=== PATIENT | female | born 1975 | race Caucasian/White ===

== ENCOUNTER → 2017-06-08 | Outpatient (CLI) | payer BC, SELFPAY | PROVIDERS: Family Provider Family Medicine; PCP Family Medicine; Visit Provider Family Medicine | DX: R10.32 Left lower quadrant pain (principal) | CPT/HCPCS: 76830 ==

== ENCOUNTER → 2017-06-13 11:06 | Outpatient (CLI) | payer BC, SELFPAY ==
[2017-06-13 11:53] LABS: Basophils % 0.8 % (0.1-2.0); Eosinophils # 0.2 K/mm3 (0.0-0.4); Eosinophils % 3.5 % (0.1-12.0); Hematocrit 33.2 % (37.0-47.0); Hemoglobin 10.1 g/dL (12.2-16.2); Lymphocytes # 1.9 K/mm3 (0.7-4.5); Lymphocytes % 42.3 K/mm3 (10-50); Mean Corpuscular HGB Conc 30.5 g/dL (31.8-35.4); Mean Corpuscular Hemoglobin 25.9 pg (27.0-31.2); Mean Corpuscular Volume 85.1 fl (81-99); Mean Platelet Volume 9.1 fl (7.4-10.4); Monocytes # 0.3 K/mm3 (0.1-1.0); Monocytes % 6.8 % (1.7-9.3); Neutrophils # 2.1 K/mm3 (1.8-7.8); Neutrophils % 46.5 % (37.0-80.0); Platelet Count 214 K/mm3 (142-424); Red Cell Distribution Width 17.1 % (11.5-17.5); White Blood Count 4.6 K/mm3 (4.8-10.8)
[2017-06-13 13:31] LABS: Anion Gap 11.5 mEq/L (5-15); Blood Urea Nitrogen 10 mg/dL (7-18); Carbon Dioxide 26 mmol/L (21.0-32.0); Chloride 106 mmol/L (98-107); Creatinine,Serum 0.78 mg/dL (0.55-1.02); Estimated Glomerular Filt Rate > 60 ml/min (>60); GFR (African American) > 60 ML/MIN (>60); Glucose 85 mg/dL (74-106); Potassium 4.5 mmoL/L (3.5-5.1); Sodium 139 mmol/L (136-145)
[2017-06-13 14:03] LABS: HCG Qualitative, Serum Negative (Negative)
== END ==
PROVIDERS: PCP Family Medicine; Visit Provider Nurse Practitioner Obstetrics & Gynecology
DX: R10.32 Left lower quadrant pain (principal); R10.2 Pelvic and perineal pain; N83.12 Corpus luteum cyst of left ovary; Z01.812 Encounter for preprocedural laboratory examination
CPT/HCPCS: 36415; 80048; 84703; 85025

== ENCOUNTER 2017-06-15 07:02 | Day surgery (SDC) | payer BC, SELFPAY ==
[2017-06-15] VITALS (12 sets, daily range): BP systolic 101–130; BP diastolic 48–77; PULSE 51–79; RESP 16–18; TEMP 36.1–43; O2SAT 95–100
--- NOTE | 2017-06-15 07:59 | HMH.ANESCL ---
[facility] Anesthesia Checklist - Structural Data Admitted From: Home Planned Operative Procedure/s: dx laparoscopy/cystectomy Consent for Planned Operative Procedure(s) Verified: Yes Verified Documents: Surgical Consent - NPO Status Verified Time NPO: 12:00 - Chart Verification Results Verified: CBC - Additional verifications Patient : No Anesthesia Reactions: No Hx Blood Transfusions: No - Airway Assessment C-Spine Mobility Assessed: Yes TMJ Mobility Assessed: Yes Dentition: Good Dentition - Neurological Assessment Level of Consciousness: Awake, Alert Hx Seizures: No Numbness or tingling in extremities: No - Psychosocial Assessment Concerns Regarding Surgery: discussed length of surgery and to discharge - Anesthesia Plan Anesthesia Risk discussed: Yes Anesthesia Plan: Verified ASA Class: II Anesthesia Type: General [facility] Anesthesia HX I have reviewed the patient's past medical history: Yes Medical History: Denies:: Cancer, Diabetes Mellitus Type 1, Diabetes Mellitus Type 2, MRSA, Seizures Other Surgeries: Yes: Bariatric Surgery, . No: Pacemaker Amputation: No Fractures: No *Family Hx:: No significant family history, Cancer, Diabetes, Heart Attack, Hyperlipidemia, Hypertension
--- NOTE | 2017-06-15 08:03 | P.PN_ITS ---
[facility] Anesthesia Checklist - Structural Data Admitted From: Home Planned Operative Procedure/s: dx laparoscopy/cystectomy Consent for Planned Operative Procedure(s) Verified: Yes Verified Documents: Surgical Consent - NPO Status Verified Time NPO: 12:00 - Chart Verification Results Verified: CBC - Additional verifications Patient : No Anesthesia Reactions: No Hx Blood Transfusions: No - Airway Assessment C-Spine Mobility Assessed: Yes TMJ Mobility Assessed: Yes Dentition: Good Dentition - Neurological Assessment Level of Consciousness: Awake, Alert Hx Seizures: No Numbness or tingling in extremities: No - Psychosocial Assessment Concerns Regarding Surgery: discussed length of surgery and to discharge - Anesthesia Plan Anesthesia Risk discussed: Yes Anesthesia Plan: Verified ASA Class: II Anesthesia Type: General [facility] Anesthesia HX I have reviewed the patient's past medical history: Yes Medical History: Denies:: Cancer, Diabetes Mellitus Type 1, Diabetes Mellitus Type 2, MRSA, Seizures Other Surgeries: Yes: Bariatric Surgery, . No: Pacemaker Amputation: No Fractures: No *Family Hx:: No significant family history, Cancer, Diabetes, Heart Attack, Hyperlipidemia, Hypertension
--- NOTE | 2017-06-15 10:24 | P.OP_ITS ---
Date of procedure: 06/15/17 Pre-op Diagnosis:: Left lower quadrant pain, 4 cm left ovarian cyst, 6 cm left ovarian cyst Post-op diagnosis:: same Procedure performed:: Laparoscopic left ovarian cystectomy Surgeon:: Matthew Stone MD Jack Setter(s):: None Psychologist Industrial Organizational:: Collins Diggs Anesthesia: GETA Estimated blood loss (mL): 25 Clinical Note:: She is a 42-year-old lady who complains of left lower quadrant pain. An ultrasound showed that she had a 4 cm and a 6 cm left ovarian cyst. As result of that she was offered laparoscopic left ovarian cystectomy. Operative findings:: She had a normal-appearing. On the left side there was a 4 cm cyst on the superior aspect of the ovary and a 6 cm cyst on the inferior aspect of the left ovary. The appendix was visualized. Normal. The rest the pelvis appeared normal. The upper abdomen appeared normal. Operative note:: She was taken to the operating room where general anesthesia was found to be adequate. She was prepped and draped in the normal sterile fashion in the semilithotomy position. A weighted speculum was placed in the vagina and the anterior lip of the cervix was grasped with a tenaculum. Wilson dilators were used to dilate the cervix to 4 mm. I then inserted a Jennifer uterine manipulator into the uterine cavity. The balloon was insufflated. I injected 10 cc of 0.5% ropivacaine around the umbilicus and made a small incision within the umbilicus. I inserted a Veress needle into the abdominal cavity. The abdominal cavity was then insufflated with carbon dioxide gas to a pressure of 20 mmHg. I then inserted a millimeter trocar under direct vision. I injected through and through at the pubic hairline, made a small incision here and inserted an 8 mm trocar under direct vision. I identified the inferior epigastric arteries, went lateral to these and injected through and through. I then inserted a 5 mm trocar under direct vision. The left ovary was grasped and opened up on the anterior side of the 4 cm cyst. The fluid was drained. I then removed part of the cyst wall. I then opened up the 6 cm cyst and remove the cyst wall. I suctioned the pelvis well and for hemostasis. To place pieces of Gelfoam into the cyst cavities. After assuring hemostasis I then wrapped the ovary in Interceed I injected 30 cc of 0.5% ropivacaine into the pelvic. The secondary trochars were removed under direct vision. The sites were hemostatic. I then let the gas out of the abdomen and remove the primary trocar. The 8 mm trocar site was closed deeply with 2-0 Vicryl suture. The skin was with subcuticular 4-0 Monocryl. The 5 mm trocar sites were closed with subcuticular 4-0 Monocryl suture. Sterile dressings were applied. The patient tolerated the procedure well and was taken to the recovery room in excellent condition. All sponge instrument and needle counts were correct. The estimated blood loss was less than 25 cc. Pathology: other (Ovarian cyst wall) Condition: stable Disposition: PACU Complications:: None
--- NOTE | 2017-06-15 10:29 | HMH.ANESI ---
[facility] Anesthesia Record Part I Intake, IV Amount: 650 Estimated blood loss (mL): 10 Urine output (mL): 10 Blood Products used (#): none Blood Pressure: 130/77 SaO2: 96 Pulse Rate: 79 Respiratory Rate: 18 Temperature: 97.0 F Patient is:: Awake Stable to PACU at:: 10:26
--- NOTE | 2017-06-15 10:32 | P.PN_ITS ---
[facility] Anesthesia Record Part II Discharge Time: 10:56 Destination: Surgical Day Care (OP Surgery) PACU nurse assessment reviewed?: Yes Patient Condition:: Good Anesthesia Complications:: None
--- NOTE | 2017-06-15 12:49 | PC.NURSE ---
06/15/17 1036 Pt medicated with Toradol 30mg IM R thigh as ordered for pain, to be given first before morphine per AUDIT ANALYST request. Pt rates pain in lower abd radiating down legs as 7/10. 06/15/17 1047 Pt medicated with Phenergan 6.25mg IV for c/o nausea. no vomiting. 06/15/17 1100 Pt med with Morphine 2mg IV for c/o lower abd pain intermittently radiating down legs rated 8/10. 06/15/17 1105 Pt med with Morphine 2mg IV for c/o lower abd pain intermittently radiating down legs rated 7/10. 06/15/17 1110 Pt med with Morphine 2mg IV for c/o lower abd pain rated 6/10. 06/15/17 1115 Pt resting comfortably. Denies need for further pain medication at this time. Rates pain in lower abd 3/10.
--- NOTE | 2017-06-15 13:50 | PC.NURSE ---
Telfa and tegaderm dressings. 2 c/d/i, 1 at umbilicus with scant drainage
== END 2017-06-15 12:30 | disposition home or self-care (01) ==
PROVIDERS: Family Provider Family Medicine; PCP Family Medicine; Visit Provider Nurse Practitioner Obstetrics & Gynecology
PROC: 0TTB4ZZ Resection of Bladder, Percutaneous Endoscopic Approach (ICD-10-PCS; CPT 51999; principal; 2017-06-15 09:00)
DX: N83.202 Unspecified ovarian cyst, left side (principal)
CPT/HCPCS: 58662; 96375; J0131; J2405

== ENCOUNTER → 2019-01-19 07:06 | Outpatient (CLI) | payer BC, SELFPAY ==
[2019-01-19 07:09] LABS: Microscopic, Urine URINE MICROSCOPIC (MICROSCOPIC)
[2019-01-19 07:33] LABS: Basophils % 0.4 % (0.1-2.0); Eosinophils # 0.1 K/mm3 (0.0-0.4); Eosinophils % 2.8 % (0.1-12.0); Hematocrit 29.8 % (37.0-47.0); Hemoglobin 9.1 g/dL (12.2-16.2); Lymphocytes # 2.5 K/mm3 (0.7-4.5); Lymphocytes % 54.4 % (10-50); Mean Corpuscular HGB Conc 30.6 g/dL (31.8-35.4); Mean Corpuscular Volume 75.1 fl (81-99); Monocytes # 0.3 K/mm3 (0.1-1.0); Monocytes % 7.3 % (1.7-9.3); Neutrophils # 1.6 K/mm3 (1.8-7.8); Platelet Count 272 K/mm3 (142-424); Red Blood Count 3.97 M/mm3 (4.20-5.40); Red Cell Distribution Width 19.5 % (11.5-17.5); White Blood Count 4.6 K/mm3 (4.8-10.8)
[2019-01-19 07:35] LABS: MANUAL DIFFERENTIAL MANUAL DIFFERENTIAL (MANUAL DIFF)
[2019-01-19 08:45] LABS: Appearance,Urine CLEAR (Clear); Bilirubin,Urine Negative (Negative); Blood, Urine Negative (Negative); Color,Urine YELLOW (Yellow); Glucose,Urine (UA) Negative (Negative); Ketones,Urine Negative (Negative); Leukocyte Esterase,Urine Negative (Negative); Nitrate,Urine Negative (Negative); Protein,Urine Negative (Negative)
[2019-01-19 08:49] LABS: Urine Pregnancy, HCG Qual. Negative (Negative)
[2019-01-19 09:01] LABS: Bacteria,Urine Trace /lpf; Mucus,Urine 2+ /lpf
[2019-01-19 09:30] LABS: Alanine Aminotransferase 19 U/L (12-78); Albumin Level 3.6 gm/dL (3.4-5.0); Albumin/Globulin Ratio 1.2 (1.1-1.8); Alkaline Phosphatase 77 U/L (46-116); Aspartate Amino Transferase 12 U/L (15-37); Bilirubin,Total 0.3 mg/dL (0.2-1.0); Blood Urea Nitrogen 9 mg/dL (7-18); Calcium 8.7 mg/dL (8.5-10.1); Carbon Dioxide 27 mmol/L (21.0-32.0); Chloride 109 mmol/L (98-107); Creatinine,Serum 0.75 mg/dL (0.55-1.02); Estimated Glomerular Filt Rate 85 ml/min (>60); GFR (African American) 103 ML/MIN (>60); Globulin 2.9 gm/dl (1.3-3.2); Glucose 85 mg/dL (74-106); Sodium 144 mmol/L (136-145); Total Protein,Serum 6.5 gm/dL (6.4-8.2)
[2019-01-19 10:42] LABS: Eosinophils % 3 % (0-3); Lymphocytes % 51 % (10-50); Monocytes % 7 % (2-9); Neutrophils % 34 % (42-76); Total Cells Counted 100
[2019-01-19 10:45] LABS: Poikilocytosis 1+; Tear Drop Cells 1+
[2019-01-19 10:46] LABS: Hypochromasia 2+; Microcytosis 2+
[2019-01-19 10:47] LABS: Platelet Estimate Normal
== END ==
PROVIDERS: Visit Provider Obstetrics & Gynecology
DX: Z01.818 Encounter for other preprocedural examination (principal); N75.1 Abscess of Bartholin's gland
CPT/HCPCS: 36415; 80053; 81001; 81025; 85007; 85025

== ENCOUNTER → 2019-03-26 09:04 | Outpatient (CLI) | payer BC, SELFPAY ==
--- NOTE | 2019-03-26 09:08 | MM_ITS ---
PROCEDURE: MM DIG SCREENING MAMM BI W/CAD CLINICAL INDICATION: screening There is no personal or family history of breast cancer COMPARISON: None, this is baseline TECHNIQUE: Standard CC and MLO images were obtained. R2 CAD reviewed. FINDINGS: There is a diffusely dense and heterogenic parenchymal pattern somewhat lessening the sensitivity of mammography. There is a single mole marker on each breast. There is no suspicious lesion and no suspicious microcalcifications. IMPRESSION: Moderate heterogenic breast density with no suspicious lesions seen BI-RAD Category: 2 Benign Finding(s) FOLLOW-UP: 1YR 1 Year Follow-up (A letter has been sent to the patient regarding results of the study.) Dictated by: Dr. Declan Medina MD 03/28/2019 17:[address] Declan Medina MD in [place] 03/28/2019 17:10
== END ==
PROVIDERS: PCP Family Medicine; Visit Provider Obstetrics & Gynecology
DX: Z12.31 Encounter for screening mammogram for malignant neoplasm of breast (principal)
CPT/HCPCS: 77067

== ENCOUNTER → 2020-02-12 14:40 | Outpatient (CLI) | payer BC, SELFPAY ==
[2020-02-14 22:37] LABS: Covid-19 Nasal PCR Sendout Lex Not Detected
== END ==
LOC: UTC.OUT 02-13 07:00 → COVID.OUT 02-13 07:01
PROVIDERS: PCP Nurse Practitioner Family; Visit Provider Nurse Practitioner Family
DX: Z03.818 Encounter for observation for suspected exposure to other biological agents ruled out (principal)
CPT/HCPCS: U0004

== ENCOUNTER → 2020-03-05 11:05 | Outpatient (CLI) | payer BC, SELFPAY ==
[2020-03-05 11:27] LABS: Basophils % 0.4 % (0.1-2.0); Eosinophils # 0.1 K/mm3 (0.0-0.4); Eosinophils % 1.3 % (0.1-12.0); Hematocrit 32.1 % (37.0-47.0); Hemoglobin 9.4 g/dL (12.2-16.2); Lymphocytes # 2.2 K/mm3 (0.7-4.5); Mean Corpuscular HGB Conc 29.3 g/dL (31.8-35.4); Mean Corpuscular Volume 78.3 fl (81-99); Mean Platelet Volume 7.8 fl (7.4-10.4); Monocytes # 0.5 K/mm3 (0.1-1.0); Monocytes % 6.4 % (1.7-9.3); Neutrophils # 5.4 K/mm3 (1.8-7.8); Neutrophils % 64.9 % (37.0-80.0); Platelet Count 261 K/mm3 (142-424); Red Blood Count 4.09 M/mm3 (4.20-5.40); Red Cell Distribution Width 20.6 % (11.5-17.5); White Blood Count 8.3 K/mm3 (4.8-10.8)
[2020-03-05 14:01] LABS: Alanine Aminotransferase 14 U/L (12-78); Albumin Level 4.3 g/dl (3.5-5.0); Albumin/Globulin Ratio 1.6 (1.1-1.8); Alkaline Phosphatase 120 U/L (38-126); Anion Gap 10.1 mEq/L (5-15); Aspartate Amino Transferase 26 U/L (14-36); Bilirubin,Total 0.5 mg/dl (0.2-1.3); Blood Urea Nitrogen 6 mg/dl (7-17); Calcium 9.2 mg/dl (8.4-10.2); Carbon Dioxide 26 mmol/L (22.0-30.0); Chloride 105 mmol/L (98-107); Chol/HDL Ratio 1.8 (1-3.5); Cholesterol 187 mg/dl (140-200); Estimated Glomerular Filt Rate 91 ml/min (>60); GFR (African American) 110 ML/MIN (>60); Globulin 2.7 g/dL (1.3-3.2); Glucose 91 mg/dl (74-100); HDL Cholesterol 102 mg/dl (40-60); Potassium 4.1 mmoL/L (3.5-5.1); Sodium 137 mmol/L (136-145); Triglycerides 74 mg/dl (30-150); VLDL Cholesterol 15 mg/dL (0-40)
[2020-03-05 14:12] LABS: Direct LDL Cholesterol 91.68 mg/dL (100-129)
[2020-03-05 14:18] LABS: Free Thyroxine Index 2.9 ug/dL (5.93-13.13); T4 (Thyroxine) 9.9 ug/dl (5.53-11.0); Triiodothryronine (T3) Uptake 29 % (23.5-40.5)
[2020-03-05 14:32] LABS: Thyroid Stimulating Hormone 3.27 uIU/mL (0.465-4.68)
[2020-03-06 11:51] LABS: LH 3.8 mIU/mL (.)
== END ==
PROVIDERS: Visit Provider Nurse Practitioner Obstetrics & Gynecology
DX: Z01.89 Encounter for other specified special examinations; N95.1 Menopausal and female climacteric states; R53.82 Chronic fatigue, unspecified; R53.83 Other fatigue; N75.1 Abscess of Bartholin's gland
CPT/HCPCS: 36415; 80053; 80061; 83001; 83002; 84436; 84443; 84479; 85025; 87070; 87205

== ENCOUNTER 2022-01-31 06:11 | Emergency (ER) | payer SELFPAY ==
[2022-01-31 06:18] VITALS: BP 0/0; PULSE 0; RESP 0; TEMP -17.7; TEMP 0; O2SAT 0
== END 2022-01-31 06:19 | disposition left against medical advice (07) ==
LOC: ER 06:19
PROVIDERS: Emergency Provider Emergency Medicine; PCP Nurse Practitioner Family
DX: Z53.21 Procedure and treatment not carried out due to patient leaving prior to being seen by health care provider (principal)